=== PATIENT | female | born 1995 | race Caucasian/White ===

== ENCOUNTER 2020-07-26 06:05 | Inpatient (IN) | payer MEDICAID, SELFPAY ==
[2020-07-26] VITALS (28 sets, daily range): BP systolic 91–118; BP diastolic 51–77; PULSE 56–86; RESP 15–18; TEMP 36.4–37.3; O2SAT 95–99; BMI 33.0
--- NOTE | 2020-07-26 06:23 | PC.NURSE ---
Addendum entered by Rehana Blackman RN 07/26/20 06:27: she stated that they may still be in the lab, that she may not be able to access them. She stated that she believed that the pt was negative because she had not been notified of a positive result. Original Note: notified Dr. Conn by phone that we did not have a hard copy of pt covid screen results. Requested that she obtain them from clinicl
[2020-07-26 06:55] LABS: Basophils % 0.3 %; Eosinophils # 0.1 10^3/uL (0.0-0.8); Eosinophils % 2.1 %; Hematocrit 30.3 % (37.0-47.0); Hemoglobin 9.8 g/dL (11.5-15.3); Lymphocytes # 1.9 10^3/uL (0.8-4.8); Lymphocytes % 28.3 %; Mean Corpuscular HGB Conc 32.3 g/dL (30.0-36.0); Mean Corpuscular Hemoglobin 27.5 pg (28.0-34.0); Mean Corpuscular Volume 85.1 fL (81-99); Mean Platelet Volume 12.2 fL (7.4-10.4); Monocytes # 0.4 10^3/uL (0.2-0.9); Monocytes % 6.3 %; Neutrophils # 4.19 10^3/uL (1.8-7.7); Neutrophils % 62.9 %; Nucleated Red Blood Cells % 0 %; Platelet Count 159 10^3/cmm (130-400); Red Blood Count 3.56 10^6/uL (4.1-5.3); Red Cell Distribution Width 13.1 % (12.1-15.1); White Blood Count 6.7 10^3/uL (4.0-10.0)
[2020-07-26] MEDS: lactated ringers 1,000 ML 999 ML IV (07:03)
[2020-07-26] MEDS: citric acid-sodium citrate 30 mL UDC PO (07:08)
[2020-07-26] MEDS: famotidine 20 mg/2 mL INJ IVP (07:08)
[2020-07-26] MEDS: metoclopramide 5 mg/mL SDV 2 mL 10 MG IVP (07:08)
--- NOTE | 2020-07-26 07:16 | P.ANESASSM_ITS ---
Pre-Anesthetic Assessment Pre-Anesthetic Assessment: Height/Weight: Height 1.52 m Weight 76.657 kg Temp Pulse BP 98.2 F 79 105/70 07/26/20 06:23 07/26/20 06:53 07/26/20 06:53 Preop Diagnosis: previous c section Proposed Procedure: Operation Date: 07/26/20 07:30 Proposed Procedures p Section Repeat(Not Applicable) - Shannon Conn MD Familial anesthetic complications: patient states she flatlined with one of her pregnancies after getting epidural. Has had epidurals since with no issue Was Beta Yefri taken within 24 hours: N/A Social: Social History: Tobacco Packs per day: 5 cigs/day Exam: Pre-Anes Outpt Exam: alert, oriented x 3, clear to auscultation bilaterally and regular rate & rhythm Additional Exam Findings (including area of procedure): patient has history of some illicit drug use Airway: Submandibular: WNL Cervical ROM: WNL MP: 2 Pulmonary: Pulmonary: Asthma CV/HEM: CV/HEM: None reported : : None reported Hepatic: Hepatic: None reported GI: GI: None reported Metabolic: Metabolic: None reported Musc/skel: Musc/skel: None reported Neuropsych: Neuropsych: Anxiety Anesthetic Plan: ASA status: 2 Anesthesia: Eval. for regional block and Regional (specify below) Risk of > 500 ml blood loss (7ml/kg in children): Y es, adequate IV access and fluids planned Data Anesthesia CBC & Chem 7: 07/26/20 06:40 Other Labs: Laboratory Results - last 48 hr 07/26/20 06:40 WBC 6.7 RBC 3.56 L Hgb 9.8 L Hct 30.3 L MCV 85.1 MCH 27.5 L MCHC 32.3 RDW 13.1 Plt Count 159 MPV 12.2 H Neut % (Auto) 62.9 Lymph % (Auto) 28.3 [place] % (Auto) 6.3 Eos % (Auto) 2.1 Baso % (Auto) 0.3 Neut # (Auto) 4.19 Lymph # (Auto) 1.9 [place] # (Auto) 0.4 Eos # (Auto) 0.1 Baso # (Auto) 0.0 Nucleated RBC % (auto) 0 Nucleated RBCs # 0.0 Cardiac Studies: No Data to Display
[2020-07-26 07:39] LABS: Amphetamines Screen Urine Negative (Negative); Barbiturates Screen Urine Negative (Negative); Benzodiazepines Screen Urine Negative (Negative); Cocaine Screen Urine Negative (Negative); Opiate Screen Urine Negative (Negative); PCP Screen Urine Negative (Negative); THC Screen Urine Negative (Negative)
--- NOTE | 2020-07-26 07:39 | P.HP_ITS ---
Providers/Chief Complaint Admitting Physician: Shannon Conn MD Primary Care Provider: Shannon Conn MD Chief Complaint: c section History of Present Illness Brianda Patton is a 24 year old female here for repeat with bilateral tubal ligation. She had routine care at [facility]. Her was complicated by Hep C and short femur. She was evaluated and released by [facility] for short femur after no significant findings. Review of Systems Const: Denies: fever(s) or chills Eyes: Denies: change in vision Card: Denies: chest pain or palpitations Resp: Denies: dyspnea or productive cough GI: Denies: abdominal pain, nausea or vomiting : Denies: flank pain or difficulty voiding Skin/Breast: Denies: rash Neuro: Denies: numbness in extremities Medications/Allergies Home Medications Medication Instructions Recorded Confirmed Last Taken Type buspirone 10 mg PO DAILY 07/26/20 07/26/20 07/24/20 History docusate sodium [DOK] 100 mg PO BID #60 cap 07/28/20 Unknown Rx hydrocodone-acetaminophen 1 - 2 tab PO Q4H PRN #10 tab 07/28/20 Unknown Rx ibuprofen 800 mg PO TID PRN #30 tab 07/28/20 Unknown Rx Allergies Allergy/AdvReac Type Severity Reaction Status Date / Time latex Allergy ALGY-Rash Verified 07/26/20 06:30 montelukast [From Singulair] Allergy ALGY-Hives Verified 07/26/20 06:30 Vitals/I&O/Wt Last Vital Signs Temp 98.2 F 07/26/20 06:23 Pulse 79 07/26/20 06:53 BP 105/70 07/26/20 06:53 Weight last 48 hrs Weight 169 lb Physical Exam HENMT: COMMON NORMALS: normocephalic FACE & SINUS: normal facial exam NOSE: Normal external nose present Eye: COMMON NORMALS: Equal, round and reactive pupils present and EOMs intact bilaterally Chest: COMMONS NORMALS: normal inspection of the chest Resp: COMMON NORMALS: normal respiratory effort and No retractions Cardio: COMMON NORMALS: regular rate and regular rhythm GI: PALPATION: No Tenderness to palpation present (GI) Extremity: GENERAL: No calf tenderness Neuro: SENSORIUM/ORIENTATION: Yes alert, Yes oriented to person and Yes oriented to place Psych: COMMON NORMALS: mental status grossly normal Data : 07/26/20 22:10 A&P Assessment and plan (1) History of section complicating : repeat Status: Acute (2) with 39 completed weeks gestation: Status: Acute (3) Sterilization consult: pt definitely desires bilateral tubal ligation Status: Acute (4) Hep C w/o coma, chronic: Status: Acute Attestations Medical Necessity Statement*: routine surgery and postoperative care Coding Level of Care Code Acute Ore Storage Drier for g Fwd Exam Comprehensive Diagnoses History of section complicating O34.219 with 39 completed weeks gestation Z3A.39 Sterilization consult Z30.09 Hep C w/o coma, chronic B18.2
--- NOTE | 2020-07-26 09:16 | P.OP_ITS ---
Operative Report Date of procedure: July 26, 2020 Pre-op Diagnosis: previous c section Pre-op Diagnosis: History of prior section IUP at 39 weeks gestation Desired permanent surgical sterilization Post-op diagnosis: same Procedure Done: 1.)Repeat low transverse section 2.)Bilateral tubal ligation Specimens removed/disposition: Vertex male weight 4160 g Apgars 7 and 8 Surgeon: Shannon Conn Anesthesia: Other (Spinal) Estimated blood loss (mL): 400 IV fluids (mL): 1,100 Urine output (mL): 60 Complications: None Condition: stable Disposition: floor Procedure: The patient was taken to the OR and given spinal anesthesia. She was prepped and draped in normal sterile fashion in dorsal supine position with a left lateral tilt. A Pfannenstiel skin incision was made through the prior scar and carried through to the underlying layer of fascia sharply. The fascial incision was then extended laterally using the Mayos. The fascia was grasped with [place] clamps and the underlying rectus muscles were dissected off taking care to avoid injury to the underlying tissue. The peritoneum was entered bluntly using a hemostat. The incision site was then manually stretched. The bladder blade was inserted and the vesicouterine peritoneum was identified and entered sharply using the Metzenbaums. The bladder flap was then created digitally. The bladder blade was reinserted and the uterine incision was made in a transverse fashion in the lower uterine segment. Amniotic rupture membranes was performed sharply and a copious amount of clear fluid was noted. The 's head was rather large and the incision site needed to be extended so the midline right rectus muscle was cut using the Mayos. The 's head was then delivered atraumatically and the rest of the infant followed shortly thereafter. There was a loose nuchal x1. was suctioned at delivery. The cord was clamped and cut and the was handed to the waiting pediatric nurse. Cord blood was obtained. The placenta was delivered grossly intact and normal to inspection using only fundal pressure. The uterus was then exteriorized from the abdomen and a dry sponge was used to clear the uterus of clots and debris. The uterine incision was then repaired using 0 chromic in a running locked fashion. A second layer of the same suture was used in an imbricating manner. There was good hemostasis. The left fallopian tube was then grasped with a Chuckie and a proximal portion of the tube was ligated and excised. Specimen was sent to pathology. Tubal ostia were visible. The cut portions of the tube were coagulated using the Bovie. The right fallopian tube was then grasped with a Chuckie and a proximal portion of the tube was ligated and excised. Specimen was sent to pathology. Tubal ostia were visible. Cut portions of the tube were coagulated using the Bovie. The uterine incision was reinspected for hemostasis and was found to have a little bit of oozing from the right mid and left corner. 2 [id number] sutures of 0 chromic were used with good hemostasis. The uterus was then returned to the abdomen. Irrigation was used to clear the gutters of clots and debris and the uterine incision was reinspected for hemost asis. The peritoneum was then reapproximated using 4-0 Vicryl in a running fashion. The cut right rectus muscle was gently reapproximated using 4-0 Vicryl. The subfascial tissue was then inspected for hemostasis and any small bleeders were coagulated using the Bovie. The fascia was then reapproximated using 0 Vicryl in a running fashion. The subcutaneous tissue was then irrigated and any small bleeders were coagulated using the Bovie. The subcutaneous tissue was then reapproximated urinary using 4-0 Vicryl. The skin was then reapproximated using 4-0 Vicryl on a Norm needle. Steri-Strips and a pressure bandage were applied and patient went to recovery in stable condition Sponge instrument and needle counts were correct
[2020-07-26] MEDS: diphenhydrAMINE 50 mg/mL SDV 1mL 25 MG IVP (10:27)
[2020-07-26] MEDS: ketorolac 30 mg/mL INJ IVP ×2 (15:19→21:10)
[2020-07-26] MEDS: dextrose 5%-lactated ringers 1,000 ML 125 ML IV (16:57)
[2020-07-26] MEDS: docusate sodium 100 mg Capsule PO (17:01)
[2020-07-26] MEDS: ferrous sulfate EC 325 mg Tablet PO (17:04)
[2020-07-26 22:25] LABS: Hematocrit 27.8 % (37.0-47.0); Hemoglobin 8.9 g/dL (11.5-15.3); Mean Corpuscular Hemoglobin 27.3 pg (28.0-34.0); Mean Corpuscular Volume 85.3 fL (81-99); Platelet Count 124 10^3/cmm (130-400); Red Blood Count 3.26 10^6/uL (4.1-5.3); Red Cell Distribution Width 13.1 % (12.1-15.1); White Blood Count 8.2 10^3/uL (4.0-10.0)
[2020-07-27] VITALS: BP 120/64; PULSE 78; RESP 14; TEMP 36.9
[2020-07-27 04:00] VITALS: BP 109/75; PULSE 76; RESP 14; TEMP 36.7
[2020-07-27] MEDS: ketorolac 30 mg/mL INJ IVP (04:11)
[2020-07-27 10:04] VITALS: BP 109/72; PULSE 68; RESP 16; TEMP 36.9; O2SAT 97
[2020-07-27] MEDS: ferrous sulfate EC 325 mg Tablet PO ×2 (10:25→17:47)
[2020-07-27] MEDS: docusate sodium 100 mg Capsule PO ×2 (10:25→17:47)
[2020-07-27] MEDS: prenatal vitamin Capsule 1 CAP PO (10:26)
--- NOTE | 2020-07-27 12:53 | P.PN_ITS ---
SHIPPING SUPPORT CLERK Subjective Subjective: Interval history: Patient is doing well today. She states she is feeling a little bit sore. She says that her bleeding is like a light period. She has passed flatus and is tolerating a regular diet Labor: Amniotic Membrane Status: Intact Status: Category I Vitals/I&O/Wt Last Vital Signs Temp 98.5 F 07/27/20 10:04 Pulse 68 07/27/20 10:04 Resp 16 07/27/20 10:04 BP 109/72 07/27/20 10:04 Pulse Ox 97 07/27/20 10:04 07/26/20 07/27/20 07/27/20 22:59 06:59 14:59 Output Total 960 / 1640 Balance -960 / -540 Weight last 48 hrs Weight 169 lb Physical Exam HENMT: COMMON NORMALS: normocephalic and atraumatic HEAD & SCALP: normocephalic and atraumatic Eye: COMMON NORMALS: Equal, round and reactive pupils present and EOMs intact bilaterally PUPIL: Yes Equal, round and reactive pupils present Chest: COMMONS NORMALS: normal inspection of the chest Resp: COMMON NORMALS: normal respiratory effort and clear to auscultation bilaterally AUSCULTATION: clear to auscultation bilaterally Cardio: COMMON NORMALS: regular rate and regular rhythm RATE: regular rate RHYTHM: regular rhythm GI: COMMON NORMALS: Soft to palpation PALPATION: Yes Soft to palpation, Yes Tenderness to palpation present (GI) (Minimal postoperative), No Guarding due to palpation present (GI) and No Rigid due to palpation Extremity: GENERAL: No calf tenderness and No edema Urinary Catheter Management^: Rader: Cath Placed During This Visit: yes, but has since been removed by the nurse Reason for Continuing Indwelling Catheter: Required Immobilization for Trauma or Surgery or Anesthesia Urinary Catheter Date of Insertion: 07/26/20 Urinary Catheter Time of Insertion: 07:40 Date Urinary Catheter Removed: 07/26/20 Time Urinary Catheter Discontinued: 20:10 Data : 07/26/20 22:10 A&P Assessment and plan (1) Status post repeat low transverse section: Postop day 1 repeat section with bilateral tubal ligation. The patient is doing very well. Continue routine postoperative care. Discharge home tomorrow is likely. Status: Acute Attestations Medical Necessity Statement*: Routine repeat section and posto perative care Coding Level of Care Code Acute Radiology Resident for Chg Fwd Diagnoses Status post repeat low transverse section Z98.891
[2020-07-27] MEDS: HYDROcodone-acetaminophen 5-325 mg Tablet PO ×2 (13:38→16:41)
[2020-07-27 15:47] VITALS: BP 105/67; PULSE 70; RESP 16; TEMP 37.2; O2SAT 97
[2020-07-27] MEDS: ibuprofen 800 mg tablet PO ×2 (16:42→21:47)
[2020-07-27 21:49] VITALS: BP 104/66; PULSE 76; RESP 18; TEMP 36.8; O2SAT 97
[2020-07-28] MEDS: HYDROcodone-acetaminophen 5-325 mg Tablet PO ×2 (04:37→09:19)
[2020-07-28 05:30] VITALS: BP 101/68; PULSE 70; RESP 16; TEMP 36.9; O2SAT 97
[2020-07-28] MEDS: prenatal vitamin Capsule 1 CAP PO (09:18)
[2020-07-28] MEDS: docusate sodium 100 mg Capsule PO (09:18)
[2020-07-28] MEDS: ibuprofen 800 mg tablet PO (09:19)
[2020-07-28] MEDS: ferrous sulfate EC 325 mg Tablet PO (09:19)
[2020-07-28 09:23] VITALS: BP 111/76; PULSE 76; RESP 16; O2SAT 98
--- NOTE | 2020-07-28 09:46 | PM.OBGYDC ---
Discharge Providers MANUFACTURING PLANT MANAGER Date of Admission: 07/26/20 06:05 Date of Discharge: 08/10/20 Attending Provider at Admission: Shannon Conn MD Attending Provider at Discharge: Shannon Conn MD Primary Care Provider: Shannon Conn MD Diagnoses at Discharge Discharge Diagnosis (1) Status post repeat low transverse section: Status: Acute (2) Sterilization consult: Status: Acute Permanent problem details: s/p bilateral tubal ligation Reason for Visit Reason for Visit: c section Hospital Course Hospital Course This is a 24y/o G3 now P3 who was scheduled for repeat with bilateral tubal ligation. There were no compilcations of the procedure and the pt did well postoperatively. She was ambulating, toerating a regular diet, had minimal vaginal bleeding and was comfortable with discharge home. Information Peripartum Data: Infant Delivery Method: Physical Exam Const: COMMON NORMALS: no acute distress HENMT: COMMON NORMALS: normocephalic and atraumatic HEAD & SCALP: normocephalic and atraumatic Chest: COMMONS NORMALS: normal inspection of the chest Resp: COMMON NORMALS: clear to auscultation bilaterally AUSCULTATION: clear to auscultation bilaterally Cardio: COMMON NORMALS: regular rate and regular rhythm RATE: regular rate RHYTHM: regular rhythm GI: COMMON NORMALS: Soft to palpation (Incision clean dry and intact) PALPATION: Yes Soft to palpation (Incision clean dry and intact), No Tenderness to palpation present (GI), No Guarding due to palpation present (GI) and No Rigid due to palpation Extremity: GENERAL: No calf tenderness and No edema Urinary Catheter Management^: Rader: Cath Placed During This Visit: yes, but has since been removed by the nurse Reason for Continuing Indwelling Catheter: Required Immobilization for Trauma or Surgery or Anesthesia Urinary Catheter Date of Insertion: 07/26/20 Urinary Catheter Time of Insertion: 07:40 Date Urinary Catheter Removed: 07/26/20 Time Urinary Catheter Discontinued: 20:10 Discharge Data Data Completed and Pending: Pending at discharge Category Date Time Status Pathology: Surgic al [PTH] Routine Pth 07/26/20 12:09 Received Vitals: Last Vital Signs Temp 98.5 F 07/28/20 05:30 Pulse 76 07/28/20 09:23 Resp 16 07/28/20 09:23 BP 111/76 07/28/20 09:23 Pulse Ox 98 07/28/20 09:23 Discharge Plan Discharge Patient Disposition: Home Condition: Stable Prescriptions: New ibuprofen 800 mg Tablet 800 mg PO TID PRN (Reason: Abdominal Discomfort) Qty: 30 RF: 0 hydrocodone-acetaminophen 5-325 mg Tablet 1 - 2 tab PO Q4H PRN (Reason: Moderate To Severe Pain) Qty: 10 RF: 0 DOK 100 mg Capsule 100 mg PO BID Qty: 60 RF: 0 Continued buspirone 10 mg Tablet 10 mg PO DAILY RF: 0 Discharge Orders: Discharge Order (Routine); Ordered 07/28/20 Ordered By: Shannon Conn Referrals: Shannon Conn MD [Primary Care Provider] - 4-7 days Discharge Diet: Usual diet Discharge Activity: Limit activity as instructed Patient Instructions: Bottle Feeding Your Baby (GEN), OB - David/Fabien, OB Discharge Report, OB Food/Drug Interaction Guide, Abnormal Bleeding, Depression Discharge Attestations MANUFACTURING PLANT MANAGER Time Spent in Discharge Care*: less than 30 min Coding Level of Care Code Acute Anesthesiology Teacher for Chg Fwd Exam Detailed Diagnoses Status post repeat low transverse section Z98.891 Sterilization consult Z30.09
[2020-07-28 12:51] VITALS: BP 114/72; PULSE 69; RESP 18; TEMP 36.8; O2SAT 97
== END 2020-07-28 13:00 | disposition home or self-care (01) | DRG 784 ==
PROVIDERS: Admitting Provider Family Medicine; PCP Family Medicine; Visit Provider Family Medicine
PROC: 10D00Z1 Extraction of Products of Conception, Low, Open Approach (ICD-10-PCS; CPT 59514; principal; 2020-07-26 07:30)
DX: O34.211 Maternal care for low transverse scar from previous cesarean delivery (principal); O98.42 Viral hepatitis complicating childbirth; Z3A.39 39 weeks gestation of pregnancy; Z37.0 Single live birth; B18.2 Chronic viral hepatitis C; O99.334 Smoking (tobacco) complicating childbirth; F17.210 Nicotine dependence, cigarettes, uncomplicated; O69.2XX0 Labor and delivery complicated by other cord entanglement, with compression, not applicable or unspecified; Z30.2 Encounter for sterilization; Z87.440 Personal history of urinary (tract) infections
CPT/HCPCS: 36415; 58611; 59025; 59409; 80306; 85025; 85027; 86850; 86900; 88302; J1200; J1885; J2274; J2370; J2765; J3490; J7030

== ENCOUNTER 2023-02-13 00:16 | Emergency (ER) | payer MEDICAID, SELFPAY ==
[2023-02-13 00:20] VITALS: BP 110/75; PULSE 100; RESP 16; TEMP 36.7; O2SAT 97; BMI 29.2
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
[2023-02-13 03:07] VITALS: BP 121/90; PULSE 93; RESP 18; O2SAT 99
[2023-02-13 03:08] VITALS: BP 121/90; PULSE 94; RESP 18; O2SAT 100
--- NOTE | 2023-02-13 10:04 | DCPLANNER ---
Addendum entered by Rica Cancino 02/20/23 10:13: Patient did not attend appointment with ortho. Addendum entered by Rica Cancino 02/17/23 15:44: Patient has a follow up appointment scheduled for Friday, February 19, 2023 at 8:[address] Duke at ortho. Addendum entered by Rica Cancino 02/14/23 13:19: audio/visual manager receive the following message from the ortho clinic regarding follow up appointment: patient left a vm calling us back - tried to call her back at [phone] - mailbox is full On Fri 8:51a Feb 14, 2023 Xena Hatch (Covering For: [facility]) Wrote To: Rica Cancino attempt made to contact patient - 1st number mailbox is full, left vm on 2nd number in chart. trying to get in next week w/ dr duke Original Note: audio/visual manager had message to schedule a follow up appointment for patient with ortho. audio/visual manager sent patients information to the front office staff at ortho. Patients information will be printed and reviewed. Clinic will call patient with appointment information.
== END 2023-02-13 03:12 | disposition home or self-care (01) ==
PROVIDERS: Emergency Provider Physician Assistant; PCP Family Medicine
DX: S52.202A Unspecified fracture of shaft of left ulna, initial encounter for closed fracture (principal); S00.03XA Contusion of scalp, initial encounter; Y04.0XXA Assault by unarmed brawl or fight, initial encounter; Y92.009 Unspecified place in unspecified non-institutional (private) residence as the place of occurrence of the external cause
CPT/HCPCS: 29105; 70450; 73090; 73110; 99284

== ENCOUNTER → 2023-03-05 15:27 | Outpatient (BNVA) | payer MEDICAID, SELFPAY | PROVIDERS: PCP Family Medicine; Referring Provider Physician Assistant; Visit Provider Specialist | DX: S52.202A Unspecified fracture of shaft of left ulna, initial encounter for closed fracture (principal); Y04.2XXA Assault by strike against or bumped into by another person, initial encounter | CPT/HCPCS: 73090; 73110 ==

== ENCOUNTER 2023-03-05 16:11 | Outpatient (CLI) | payer MEDICAID, SELFPAY | END 2023-03-05 16:12 | disposition home or self-care (01) | LOC: SPT 16:12 | PROVIDERS: PCP Family Medicine; Visit Provider Specialist | DX: Z46.89 Encounter for fitting and adjustment of other specified devices (principal); S52.202D Unspecified fracture of shaft of left ulna, subsequent encounter for closed fracture with routine healing; X58.XXXD Exposure to other specified factors, subsequent encounter | CPT/HCPCS: 97760; L3982 ==

== ENCOUNTER → 2023-04-09 13:01 | Outpatient (BNVA) | payer MEDICAID, SELFPAY | PROVIDERS: PCP Family Medicine; Visit Provider Specialist | DX: S52.202A Unspecified fracture of shaft of left ulna, initial encounter for closed fracture (principal); X58.XXXA Exposure to other specified factors, initial encounter | CPT/HCPCS: 73090 ==

== ENCOUNTER 2025-05-14 16:30 | Emergency (ER) | payer MEDICAID, SELFPAY ==
[2025-05-14] VITALS (7 sets, daily range): BP systolic 104–128; BP diastolic 53–89; PULSE 72–82; RESP 16; TEMP 36.8; O2SAT 99–100; BMI 33.0
--- NOTE | 2025-05-14 17:11 | CTR_ITS ---
PROCEDURE INFORMATION: Exam: CT Abdomen And Pelvis With Contrast Exam date and time: 05/14/2025 5:25 PM Age: 29 years old Clinical indication: Abdominal pain; Generalized; Prior surgery; Surgery date: 6+ months; Surgery type: Gb, c section x 2; Additional info: Abd pain TECHNIQUE: Imaging protocol: Computed tomography of the abdomen and pelvis with contrast. Radiation optimization: All CT scans at this facility use at least one of these dose optimization techniques: automated exposure control; mA and/or kV adjustment per patient size (includes targeted exams where dose is matched to clinical indication); or iterative reconstruction. Contrast material: OMNIPAQUE 350; Contrast volume: 100 ml; Contrast route: INTRAVENOUS (IV); COMPARISON: CT abdomen pelvis w con* [id number] 12/26/2018 8:38 AM RADIATION DOSE METRICS: Total DLP (mGy-cm): 612.91 FINDINGS: Lower chest: Heart size normal. Lungs are clear. Liver: Soft tissue mass measuring a proximally 2.4 x 3.1 cm in diameter having CT number of 65.9 seen adjacent to or arising from the anterior dome of the liver. Follow-up MRI recommended. Liver otherwise unremarkable. Gallbladder and biliary ducts: Status post cholecystectomy. No ductal dilation. Pancreas: Normal. No ductal dilation. Spleen: Normal. No splenomegaly. Adrenal glands: Normal. No mass. Kidneys and ureters: Normal. No hydronephrosis. Stomach and bowel: Stomach and small bowel unremarkable. Appearance of segment of wall thickening proximal sigmoid colon . No significant pericolonic stranding but this would be suspicious for colitis. Clinical correlation recommended. Appendix: No evidence of appendicitis. Intraperitoneal space: Unremarkable. No free air. No significant fluid collection. Vasculature: Unremarkable. No abdominal aortic aneurysm. Lymph nodes: Unremarkable. No enlarged lymph nodes. Urinary bladder: Wall thickness upper limits. This may be related to degree of distension. Correlate for UTI. Reproductive: Uterus unremarkable. 1.1 cm right ovarian cyst 8.9 cm left ovarian cyst. No free fluid evident.. Bones/joints: Appears to be lumbarization of the S1 with nondisplaced pars defects . Soft tissues: Unremarkable. CT/CT abdomen pelvis w con* [id number] IMPRESSION: 1. Appearance of soft tissue mass seen related to the anteromedial dome of the liver. Follow-up MRI recommended. 2. Status post cholecystectomy. 3. Segment of 4. Mild wall thickening proximal sigmoid colon. Correlate for colitis. 5. Wall thickness urinary bladder upper limits. This may be related to degree of distension. Correlate for UTI. 6. Small bilateral ovarian cysts. 7. Apparent lumbarization of the S1 with nondisplaced bilateral pars defects.
[2025-05-14 17:14] LABS: HCG Qualitative Urine. Negative (Negative)
[2025-05-14 17:15] LABS: Glucose Urine UA Negative (Normal); Nitrate Urine Negative (Negative); Specific Gravity, Urine 1.020 (1.005-1.030)
--- NOTE | 2025-05-14 17:15 | ED_ITS ---
HPI - Abdominal Pain 2 General: Chief Complaint: Abdominal Pain Stated Complaint: Lower ABD Pain Bloody BM Time Seen by Provider: 05/14/25 17:07 Source: patient Mode of arrival: ambulatory Limitations: no limitations History of Present Illness: 29-year-old female states been having lo wer abdominal pain since midnight. States has been a cramping pain in her lower abdomen she rates a 5 out of 10 she had some nausea states she had some slight bright red blood in her stool no large amount. She denies any fever denies any dysuria. Associated Symptoms: Reports nausea and vomiting; Denies chills, diarrhea, dysuria and fever(s) Related Data Date of Last Menstrual Period: 05/10/25 Home Medications ?Medication ?Instructions ?Recorded ?Confirmed buspirone 10 mg tablet 10 mg PO DAILY 07/26/2003/28 Previous Rx's ?Medication ?Instructions ?Recorded docusate sodium 100 mg capsule 100 mg PO BID #60 caps 07/28/20 (DOK) hydrocodone 5 mg-acetaminophen 325 1 - 2 tab PO Q4H VT N Moderate To 07/28/20 mg tablet Severe Pain #10 tabs ibuprofen 800 mg tablet 800 mg PO TID PRN Abdominal 07/28/20 Discomfort #30 tabs fast form cast #1 ea 03/05/23 ciprofloxacin HCl 500 mg tablet 500 mg PO BID #14 tabs 05/14/25 (Cipro) hydrocodone 5 mg-acetaminophen 325 1 tab PO Q6H PRN pa in #14 tabs 05/14/25 mg tablet metronidazole 500 mg tablet 500 mg PO Q8H 7 days #21 t abs 05/14/25 ondansetron 4 mg disintegrating 4 mg PO Q6H PRN nausea and 05/14/25 tablet vomiting #14 tabs Allergies Allergy/AdvReac Type Severity Reaction Status Date / Time latex Allergy ALGY-Rash Verified 05/14/25 16:41 montelukast (From Singulair) Allergy ALGY-Hives Verified 05/14/25 16:41 Review of Systems 2 Const: Denies: fever(s), chills, body aches or change in appetite ENMT: Denies: throat pain or dental pain Card: Denies: chest pain Resp: Denies: dyspnea GI: Reports: abdominal pain, nausea and vomiting; Denies: diarrhea : Denies: dysuria Musc: Denies: neck pain or back pain Skin/Breast: Denies: rash Neuro: Denies: headache(s) [facility] ED 2 Female Reproductive History: Date of last menstrual period: 05/10/25 Physical Exam 2 Const: COMMON NORMALS: no acute distress, patient oriented x3 and healthy appearing HENMT: COMMON NORMALS: normocephalic and atraumatic HEAD & SCALP: n ormocephalic and atraumatic Neck/C-Spine: COMMON NORMALS: full ROM and supple Chest: COMMONS NORMALS: normal inspection of the chest Resp: COMMON NORMALS: normal respiratory effort, No retractions, No use of accessory muscles and clear to auscultation bilaterally AUSCULTATION: clear to auscultation bilaterally Cardio: COMMON NORMALS: regular rate, regular rhythm and No murmurs present (Cardio) RATE: regular rate RHYTHM: regular rhythm GI: COMMON NORMALS: Normal to inspection, nondistended, normoactive bowel sounds present, Soft to palpation and no masses PALPATION: Yes Soft to palpation OTHER: mild lower abd tenderness Extremity: COMMON NORMALS: normal to inspection and full ROM Neuro: COMMON NORMALS: patient oriented x3, moves all extremities and no focal motor deficits Psych: COMMON NORMALS: mental status grossly normal, Normal thought process present and cooperative THOUGHT PROCESS: Normal thought process present Skin: COMMON NORMALS: no rashes or lesions noted and no wounds GENERAL SKIN EXAM: no rashes or lesions noted Course 2 Vital Signs: Vital signs: Vital Signs Temperature 98.3 F 05/14/25 16:36 Pulse Rate 73 05/14/25 18:00 Respiratory Rate 16 05/14/25 17:55 Blood Pressure 113/83 05/14/25 18:00 Pulse Oximetry 100 05/14/25 18:00 Oxygen Delivery Me thod Room Air 05/14/25 18:00 MDM - Abdominal Pain Medical Decision Making Patient presents for abdominal pains going on since yesterday. Differential includes appendicitis, diverticulitis, PID. Patient CT showed no signs appendicitis or diverticulitis. She denies any vaginal discharge or pelvic pain with no signs of PID. CT did show colitis she also had trichomonas in her urine we will start her on Cipro and Flagyl. Her pain is much improved after morphine and Zofran her initial and repeat exam showed no extreme tenderness. Informed her not to drink alcohol with the Flagyl. She is to follow-up with PCP in 4 to 5 days and return if worsening she understands agrees to plan did review her labs that showed no acute abnormalities Medical Records I reviewed the patient's medical records. Lab Data I reviewed the patient's lab results. 05/14/25 17:20 05/14/25 17:20 Labs/Radiology: Radiology Impressions Abdomen/Pelvis CT 05/14/25 17:11 IMPRESSION: 1. Appearance of soft tissue mass seen related to the anteromedial dome of the liver. Follow-up MRI recommended. 2. Status post cholecystectomy. 3. Segment of 4. Mild wall thickening proximal sigmoid colon. Correlate for colitis. 5. Wall thickness urinary bladder upper limits. This may be related to degree of distension. Correlate for UTI. 6. Small bilateral ovarian cysts. 7. Apparent lumbarization of the S1 with nondisplaced bilateral pars defects. Laboratory Results WBC 9.78 10^3/uL (3.29-11.43) 05/14/25 17:20 RBC 4.74 10^6/uL (3.85-5.65) 05/14/25 17:20 Hgb 14.00 g/dL (11.27-16.99) 05/14/25 17:20 Hct 41.0 % (36-47) 05/14/25 17:20 MCV 86.5 fl (85-98) 05/14/25 17:20 MCH 29.5 pg (27-33) 05/14/25 17:20 MCHC 34.1 g/dL (30-55) 05/14/25 17:20 RDW 11.6 % (12.1-15.1) L 05/14/25 17:20 Plt Count 294 10^3/cmm (157-399) 05/14/25 17:20 MPV 10.0 fL (7.4-10.4) 05/14/25 17:20 Neut % (Auto) 69.7 % 05/14/25 17:20 Lymph % (Auto) 24.2 % 05/14/25 17:20 Smith % (Auto) 4.6 % 05/14/25 17:20 Eos % (Auto) 1.1 % 05/14/25 17:20 Baso % (Auto) 0.2 % 05/14/25 17:20 Neut # (Auto) 6.81 10^3/uL (1.8-7.7) 05/14/25 17:20 Lymph # (Auto) 2.4 10^3/uL (0.8-4.8) 05/14/25 17:20 Smith # (Auto) 0.5 10^3/uL (0.2-0.9) 05/14/25 17:20 Eos # (Auto) 0.1 10^3/uL (0.0-0.8) 05/14/25 17:20 Baso # (Auto) 0.0 10^3/uL (0.0-0.1) 05/14/25 17:20 Nucleated RBC % (auto) 0 % 05/14/25 17:20 Nucleated RBCs # 0.0 /100WBC 05/14/25 17:20 Sodium 138 mmol/L (136-145) 05/14/25 17:20 Potassium 4.1 mmol/L (3.5-5.1) 05/14/25 17:20 Chloride 103 mmol/L (98-107) 05/14/25 17:20 Carbon Dioxide 24 mmol/L (22-29) 05/14/25 17:20 Anion Gap 15.1 (5-19) 05/14/25 17:20 BUN 14 mg/dL (6-20) 05/14/25 17:20 Creatinine 0.8 mg/dL (0.5-0.9) 05/14/25 17:20 GFR Calculation 84.2 mL/min (90-130) L 05/14/25 17:20 Glucose 80 mg/dL (65-115) 05/14/25 17:20 Calculated Osmolality 285 mOsm/kg (285-295) 05/14/25 17:20 Lactic Acid 0.8 mmol/L (0.5-2.2) 05/14/25 17:45 Calcium 9.5 mg/dL (8.5-10.5) 05/14/25 17:20 Total Bilirubin 0.3 mg/dL (0.15-1.2) 05/14/25 17:20 AST 17 U/L (0-32) 05/14/25 17:20 ALT 18 U/L (0-33) 05/14/25 17:20 Alkaline Phosphatase 90 U/L (35-105) 05/14/25 17:20 Total Protein 7.9 g/dL (6.6-8.7) 05/14/25 17:20 Albumin 4.6 g/dL (3.5-5.2) 05/14/25 17:20 Globulin 3.3 g/dL (1.3-4.6) 05/14/25 17:20 Lipase 36 U/L (13-60) 05/14/25 17:20 HCG, Qual Negative (Negative) 05/14/25 17:05 Urine Color Yellow (Yellow) 05/14/25 17:05 Urine Appearance Clear (CLEAR) 05/14/25 17:05 Urine pH 6.0 (5-7) 05/14/25 17:05 Ur Specific [place] 1.020 (1.005-1.030) 05/14/25 17:05 Urine Protein Negative (Negative) 05/14/25 17:05 Urine Glucose (UA) Negative (Normal) 05/14/25 17:05 Urine Ketones Negative (Negative) 05/14/25 17:05 Urine Blood Negative (Negative) 05/14/25 17:05 Urine Nitrate Negative (Negative) 05/14/25 17:05 Urine Bilirubin Negative (Negative) 05/14/25 17:05 Urine Urobilinogen 0.2 mg/dL (Negative) 05/14/25 17:05 Ur Leukocyte Esterase Trace (Negative) A 05/14/25 17:05 Urine RBC 0-4 /hpf (0-2) H 05/14/25 17:05 Urine WBC 5-10 /hpf (0-5) H 05/14/25 17:05 Ur Squamous Epith Cells 5-10 /hpf (0-5) H 05/14/25 17:05 Amorphous Sediment Not Reportable 05/14/25 17:05 Urine Bacteria Trace /hpf (NONE) 05/14/25 17:05 Urine Trichomonas Trace /hpf H 05/14/25 17:05 All radiology interpretation(s) finalized by discharge Discharge Plan Discharge Patient Disposition: Home Clinical Impression: Colitis, infection, trichomonal Condition: Stable Prescriptions: New hydrocodone-acetaminophen 5-325 mg tablet 1 tab PO Q6H PRN (Reason: pain) Qty: 14 0RF metronidazole 500 mg tablet 500 mg PO Q8H 7 Days Qty: 21 0RF ciprofloxacin HCl [Cipro] 500 mg tablet 500 mg PO BID Qty: 14 0RF ondansetron 4 mg tablet,disintegrating 4 mg PO Q6H PRN (Reason: nausea and vomiting) Qty: 14 0RF No Action (DME) fast form cast See Rx Instructions .Route .MEDSUPPLY Qty: 1 0RF Rx Instructions: As directed buspirone 10 mg Tablet 10 mg PO DAILY ibuprofen 800 mg Tablet 800 mg PO TID PRN (Reason: Abdominal Discomfort) Qty: 30 0RF hydrocodone-acetaminophen 5-325 mg Tablet 1 - 2 tab PO Q4H PRN (Reason: Moderate To Severe Pain) Qty: 10 0RF DOK 100 mg Capsule 100 mg PO BID Qty: 60 0RF Discharge Orders: Discharge ED (Routine); Ordered 05/14/25 Ordered By: Marilin Phillips Referrals: Shannon Conn MD [Primary Care Provider, [facility]] - 4-7 days Discharge Diet: Advance as tolerated Discharge Activity: Resume usual activity Patient Instructions: Infectious Colitis (ED), Opioid Safety Print Language: Maldivian Coding Level of Care Code ED Process Server for Nico Cast
[2025-05-14 17:26] LABS: Hematocrit 41.0 % (36-47); Hemoglobin 14.00 g/dL (11.27-16.99); Mean Corpuscular HGB Conc 34.1 g/dL (30-55); Mean Corpuscular Hemoglobin 29.5 pg (27-33); Mean Corpuscular Volume 86.5 fl (85-98); Nucleated Red Blood Cells % 0 %; Platelet Count 294 10^3/cmm (157-399); Red Blood Count 4.74 10^6/uL (3.85-5.65); White Blood Count 9.78 10^3/uL (3.29-11.43)
[2025-05-14] MEDS: iohexol 350 mg/mL 500 mL Btl (per mL) IV (17:30)
[2025-05-14] MEDS: ondansetron 2 mg/ML SDV 2 mL 4 MG IVP (17:46)
[2025-05-14 17:49] LABS: Alanine Aminotransferase 18 U/L (0-33); Albumin Level 4.6 g/dL (3.5-5.2); Alkaline Phosphatase 90 U/L (35-105); Anion Gap 15.1 (5-19); Aspartate Amino Transferase 17 U/L (0-32); Blood Urea Nitrogen 14 mg/dL (6-20); Calcium 9.5 mg/dL (8.5-10.5); Carbon Dioxide 24 mmol/L (22-29); Chloride 103 mmol/L (98-107); Creatinine Clr Calc Pharmacy 94.1480; Globulin 3.3 g/dL (1.3-4.6); Glucose 80 mg/dL (65-115); Lipase 36 U/L (13-60); Osmolality Calculated 285 mOsm/kg (285-295); Potassium 4.1 mmol/L (3.5-5.1); Sodium 138 mmol/L (136-145); Total Protein 7.9 g/dL (6.6-8.7)
[2025-05-14] MEDS: morphine 4 mg/mL SDV 1 mL IVP (17:55)
[2025-05-14 18:17] LABS: Lactic Sepsis W/Reflex 0.8 mmol/L (0.5-2.2)
[2025-05-14 19:02] LABS: Neisseria Gonorrhea NOT DETECTED (Negative)
== END 2025-05-14 19:04 | disposition home or self-care (01) ==
PROVIDERS: Emergency Medicine; Emergency Provider Emergency Medicine; PCP Family Medicine
DX: K52.9 Noninfective gastroenteritis and colitis, unspecified (principal); A59.9 Trichomoniasis, unspecified
CPT/HCPCS: 36415; 74177; 80053; 81001; 81025; 83605; 83690; 85025; 87491; 87591; 96361; 96374; 96375; 99285; J2270; J2405; J7030

== ENCOUNTER 2025-06-09 11:05 | Outpatient (CLI) | payer MEDICAID, SELFPAY ==
--- NOTE | 2025-06-09 11:10 | MRR_ITS ---
PROCEDURE INFORMATION: Exam: MR Abdomen Without Contrast Exam date and time: 06/09/2025 11:21 AM Age: 29 years old Clinical indication: Abnormal findings; Abnormal radiologic finding of the abdomen; Radiologic exam and body structure: CT abdomen; Prior surgery; Surgery date: 6+ months; Surgery type: Gallbladder; Prior CT appearance of soft tissue mass seen related to the anteromedial dome of. The liver, abd pain x 2 months; Additional info: Liver mass TECHNIQUE: Imaging protocol: Magnetic resonance imaging of the abdomen without contrast. COMPARISON: CT abdomen pelvis w con* [id number] 05/14/2025 5:25 PM FINDINGS: Liver: Liver is unremarkable. There is no hepatic mass. The area of question on the previous CT appears to be the anterior aspect of the right hemidiaphragm on those images. Gallbladder and biliary ducts: Status post cholecystectomy. The biliary tree is unremarkable, accounting for age. Pancreas: Pancreas is unremarkable. The pancreatic duct is normal in size. Spleen: Spleen is unremarkable. Adrenal glands: The adrenal glands are unremarkable. Kidneys: The kidneys and ureters are unremarkable. Stomach and bowel: The visible bowel is unremarkable. Intraperitoneal space: The intraperitoneal space is unremarkable. No free air. No significant fluid collection. Vasculature: The vasculature is unremarkable accounting for age. No abdominal aortic aneurysm. Lymph nodes: No enlarged lymph nodes. Bones/joints: The visible skeletal structures are unremarkable. Soft tissues: The remaining soft tissue is unremarkable. Other findings: The visible portion of the chest is unremarkable. MR/MR abdomen wo/w con* [id number] IMPRESSION: 1. Normal liver. No hepatic mass. In the possible mass identified on the comparison CT appears to just be the anterior aspect of the right hemidiaphragm on axial imaging. 2. No acute abdominal pathology.
[2025-06-09] MEDS: gadobenate dimeglumine 20 mL vial 16 ML IV (11:38)
== END 2025-06-09 11:06 | disposition home or self-care (01) ==
LOC: RAD 11:06
PROVIDERS: PCP Family Medicine; Visit Provider Nurse Practitioner Family
DX: R16.0 Hepatomegaly, not elsewhere classified (principal); Z90.49 Acquired absence of other specified parts of digestive tract; R93.89 Abnormal findings on diagnostic imaging of other specified body structures
CPT/HCPCS: 74183

== ENCOUNTER → 2025-07-05 15:23 | Outpatient (BNVA) | payer MEDICAID, SELFPAY | PROVIDERS: PCP Family Medicine | DX: L02.91 Cutaneous abscess, unspecified (principal) | CPT/HCPCS: 87070; 87075; 87205 ==